=== PATIENT | female | born 1990 | race Asian ===

== ENCOUNTER 2016-09-26 13:44 | Outpatient (CLI) | payer OTHER | END 2016-09-26 13:45 | disposition home or self-care (01) | DX: Z36 Encounter for antenatal screening of mother (principal) ==

== ENCOUNTER 2022-05-23 17:15 | Outpatient (CLI) | payer OTHER | END 2022-05-23 23:59 | disposition home or self-care (01) | LOC: LAB.WCP 17:15 | PROVIDERS: ATTEND Nurse Practitioner Family | DX: K13.70 Unspecified lesions of oral mucosa (principal) | CPT/HCPCS: 87252 ==